=== PATIENT | female | born 1990 | race African-American/Black ===

== ENCOUNTER 2017-02-04 15:32 | Emergency (ER) | payer OTHER ==
[~2017-02-04] VITALS: Ht 167.6 cm; Wt 111.1 kg
[2017-02-04 16:50] LABS: Urine Bilirubin Negative (Negative); Urine Blood 2+ /uL (Negative); Urine Color Yellow (Yellow); Urine Glucose Normal (Normal); Urine Ketone Negative (Negative); Urine Nitrite Negative (Negative); Urine RBC 2 /hpf (0 - 4); Urine Squamous Epithelial Cell FEW /hpf (<5); Urine Urobilinogen Normal (Negative); Urine pH 5.5 (5.0-8.0)
[2017-02-04 17:06] LABS: Basophils # (auto) 0.1 uL; Eosinophils # (auto) 0.3 uL; Lymphocytes # (auto) 2.3 uL
[2017-02-04 17:08] LABS: Basophils % (auto) 0.7 % (0.0-2.0); Eosinophils % (auto) 2.5 % (0.0-7.0); Hematocrit 35.7 % (36.0-46.0); Hemoglobin 11.3 g/dL (12.2-16.2); Lymphocytes % (auto) 20.3 % (10.0-50.0); Mean Corpuscular Hemoglobin 24.1 pg (28.0-32.0); Mean Corpuscular Hgb Conc. 31.7 g/dL (32.0-36.0); Mean Corpuscular Volume 75.9 fL (80.0-100.0); Mean Platelet Volume 7.4 fL (6.9-10.8); Monocytes # (auto) 0.6 uL; Monocytes % (auto) 5.7 % (0.0-12.0); Neutrophils # (auto) 7.9 uL; Neutrophils % (auto) 70.8 % (37.0-80.0); Nucleated Red Blood Cells % 0.1 %; Platelet Count (auto) 272 10^3/uL (140-450); White Blood Cell 11.2 10^3/uL (4.4-10.8)
[2017-02-04 17:15] LABS: Red Cell Distribution Width 20.8 % (11.8-14.3)
[2017-02-04 17:30] LABS: Albumin 3.5 g/dL (3.4-5.0); BUN/Creatinine Ratio 9.2; Bilirubin, Total 0.2 mg/dL (0.2-1.0); Calcium 8.8 mg/dL (8.5-10.1); Potassium 3.7 mmol/L (3.5-5.1); Total Protein 7.8 g/dL (6.4-8.2)
[2017-02-04 17:37] LABS: Ovalocytes FEW; Platelet Estimate Adequate; Stomatocytes Few; Tear Drop Cells FEW
[2017-02-04 17:38] LABS: Anisocytosis Slight; Microcytosis Slight
[2017-02-04 17:39] LABS: Hypochromia Slight
[2017-02-04 19:53] VITALS: BP 117/87
== END 2017-02-04 20:45 | disposition home or self-care (01) ==
LOC: ER 15:47
DX: O03.9 Complete or unspecified spontaneous abortion without complication (principal); Z3A.09 9 weeks gestation of pregnancy
CPT/HCPCS: 36415; 76801; 80053; 81001; 84702; 85025

== ENCOUNTER 2017-02-05 09:09 | Emergency (ER) | payer OTHER ==
[~2017-02-05] VITALS: Ht 167.6 cm; Wt 115.2 kg
[2017-02-05] MEDS ORDERED: SODIUM CHLORIDE 0.9% 1,000 ML IV ONE (10:05)
[2017-02-05] MEDS ORDERED: PROMETHAZINE HCL 25 MG/ML 1ML IV ONE (10:15)
[2017-02-05] MEDS ORDERED: NALBUPHINE HCL 10 MG/1ml INJECTION IV ONE (10:15)
[2017-02-05 10:48] LABS: Basophils # (auto) 0.1 uL; Eosinophils # (auto) 0.2 uL; Lymphocytes # (auto) 1.7 uL
[2017-02-05 10:50] LABS: Basophils % (auto) 0.8 % (0.0-2.0); Eosinophils % (auto) 1.9 % (0.0-7.0); Hemoglobin 11.9 g/dL (12.2-16.2); Lymphocytes % (auto) 16.3 % (10.0-50.0); Mean Corpuscular Hemoglobin 24.4 pg (28.0-32.0); Mean Corpuscular Hgb Conc. 32.3 g/dL (32.0-36.0); Mean Platelet Volume 7.7 fL (6.9-10.8); Monocytes # (auto) 0.7 uL; Monocytes % (auto) 6.6 % (0.0-12.0); Neutrophils # (auto) 7.6 uL; Neutrophils % (auto) 74.4 % (37.0-80.0); Nucleated Red Blood Cells % 0.1 %; Platelet Count (auto) 265 10^3/uL (140-450); Red Cell Distribution Width 20.7 % (11.8-14.3); White Blood Cell 10.2 10^3/uL (4.4-10.8)
[2017-02-05 10:52] LABS: Mean Corpuscular Volume 75.8 fL (80.0-100.0)
[2017-02-05] MEDS ORDERED: OXYTOCIN 10UNIT/ML 1ML VIAL IV ONE ×2 (11:15→12:15)
[2017-02-05 11:49] LABS: INR 0.92 (0.9-1.15); Partial Thromboplastin Time 28.9 sec (22.64-33.71)
[2017-02-05 16:00] VITALS: BP 111/72
== END 2017-02-05 16:33 | disposition home or self-care (01) ==
LOC: ER 09:09 → EDBD 09:09 → ER 16:33
DX: O03.89 Complete or unspecified spontaneous abortion with other complications (principal); O36.4XX0 Maternal care for intrauterine death, not applicable or unspecified; Z3A.00 Weeks of gestation of pregnancy not specified; Z88.8 Allergy status to other drugs, medicaments and biological substances
CPT/HCPCS: 36415; 76801; 76817; 84702; 85025; 85610; 85730; 86850; 86900; 86901; 96374; 96375; 99285; J2300; J2550; J2590

== ENCOUNTER 2017-02-21 08:46 | Emergency (ER) | payer OTHER ==
[~2017-02-21] VITALS: Ht 167.6 cm; Wt 108.9 kg
[2017-02-21 09:31] VITALS: BP 104/54
== END 2017-02-21 09:43 | disposition home or self-care (01) ==
LOC: ER 08:46 → EDBD 08:46 → ER 09:43
DX: M79.1 Myalgia (principal); M79.652 Pain in left thigh; Z88.8 Allergy status to other drugs, medicaments and biological substances

== ENCOUNTER 2017-12-12 15:46 | Emergency (ER) | payer OTHER ==
[~2017-12-12] VITALS: Ht 167.6 cm; Wt 104.3 kg
[2017-12-12 17:52] LABS: Basophils # (auto) 0.1 uL; Eosinophils # (auto) 0.2 uL; Eosinophils % (auto) 2.3 % (0.0-7.0); Hemoglobin 11.7 g/dL (12.2-16.2); Monocytes # (auto) 0.9 uL
[2017-12-12 17:54] LABS: Basophils % (auto) 0.8 % (0.0-2.0); Hematocrit 36.2 % (36.0-46.0); Lymphocytes # (auto) 2.2 uL; Lymphocytes % (auto) 20.3 % (10.0-50.0); Mean Corpuscular Hemoglobin 25.9 pg (28.0-32.0); Mean Corpuscular Hgb Conc. 32.4 g/dL (32.0-36.0); Mean Corpuscular Volume 79.7 fL (80.0-100.0); Monocytes % (auto) 8.2 % (0.0-12.0); Neutrophils # (auto) 7.3 uL; Neutrophils % (auto) 68.4 % (37.0-80.0); Nucleated Red Blood Cells % 0.2 %; Platelet Count (auto) 289 10^3/uL (140-450); Red Blood Cells 4.54 10^6/uL (4.0-5.20); Red Cell Distribution Width 16.4 % (11.8-14.3); White Blood Cell 10.7 10^3/uL (4.4-10.8)
[2017-12-12 18:04] LABS: Albumin 3.3 g/dL (3.4-5.0); Calcium 8.5 mg/dL (8.5-10.1); Potassium 3.8 mmol/L (3.5-5.1)
[2017-12-12 18:06] LABS: BUN/Creatinine Ratio 6.1
[2017-12-12 18:16] LABS: Bilirubin, Total 0.2 mg/dL (0.2-1.0); Total Protein 7.3 g/dL (6.4-8.2)
[2017-12-12] MEDS ORDERED: SODIUM CHLORIDE 0.9% 1,000 ML IVB ONE (20:11)
[2017-12-12] MEDS ORDERED: ONDANSETRON HCL 4 MG/2 ML VIAL IV ONE (20:15)
[2017-12-12 20:56] LABS: Amylase 34 U/L (25-115); Lipase 53 U/L (73-393)
[2017-12-12] MEDS ORDERED: SODIUM CHLORIDE 0.9% 1,000 ML IV ONE (23:00)
[2017-12-12 23:48] LABS: Urine Bacteria NONE SEEN /hpf (None Seen); Urine Blood Negative /uL (Negative); Urine Specific Gravity 1.006 (1.001-1.035); Urine WBC 1 /hpf (0 - 5)
[2017-12-13 02:00] VITALS: BP 119/50
== END 2017-12-13 02:37 | disposition home or self-care (01) ==
LOC: ER 15:46
DX: O26.891 Other specified pregnancy related conditions, first trimester (principal); O21.9 Vomiting of pregnancy, unspecified; O99.331 Smoking (tobacco) complicating pregnancy, first trimester; Z3A.01 Less than 8 weeks gestation of pregnancy
CPT/HCPCS: 36415; 76801; 80053; 81001; 82150; 83690; 84702; 85025; 96360; 96361; 99285; J7030

== ENCOUNTER 2018-06-14 18:05 | Observation (INO) | payer OTHER ==
[2018-06-14] MEDS ORDERED: PREN-129 OR (18:50)
== END 2018-06-14 19:14 | disposition home or self-care (01) | DRG 566 ==
LOC: LDRP 18:05
PROVIDERS: ADMIT Obstetrics & Gynecology; ATTEND Obstetrics & Gynecology
DX: O26.893 Other specified pregnancy related conditions, third trimester (principal); F12.90 Cannabis use, unspecified, uncomplicated; R10.2 Pelvic and perineal pain; R51 Headache; R11.0 Nausea; O99.323 Drug use complicating pregnancy, third trimester; Z3A.31 31 weeks gestation of pregnancy; Z87.891 Personal history of nicotine dependence
CPT/HCPCS: 59025; 81002; G0378